=== PATIENT | female | born 1980 | race Caucasian/White ===

== ENCOUNTER 2016-08-22 00:57 | Emergency (ER) | payer BC, MEDICAID, OTHER ==
[2016-08-22] MEDS ORDERED: Midazolam 1 MG/ML 2 ML SDV ONE (01:14)
[2016-08-22] MEDS ORDERED: Sodium Chloride 0.9% 1,000 ML IV SCH (01:45)
[2016-08-22] MEDS ORDERED: Ketorolac 30 MG/ML SDV IVPUSH ONE (01:59)
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
[2016-08-22] MEDS ORDERED: Acetaminophen/HYDROcodone 325-5 MG Tab PO ONE (03:25)
[2016-08-22 03:43] VITALS: BP 126/90
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
== END 2016-08-22 03:35 | disposition home or self-care (01) ==
LOC: FB.ED 00:57
DX: S22.31XA Fracture of one rib, right side, initial encounter for closed fracture (principal); S32.059A Unspecified fracture of fifth lumbar vertebra, initial encounter for closed fracture; S80.811A Abrasion, right lower leg, initial encounter; W22.8XXA Striking against or struck by other objects, initial encounter; Y93.89 Activity, other specified
CPT/HCPCS: 36415; 71010; 71250; 72128; 73590; 74176; 80048; 80076; 80305; 81001; 82150; 84702; 85025; 85610; 96365; 96375; 99285; A9270; G0480; J1885; J7040

== ENCOUNTER 2017-11-05 11:31 | Emergency (ER) | payer MEDICAID ==
[2017-11-05] MEDS ORDERED: Ketorolac 60 MG/2 ML SDV IM ONE (11:41)
--- NOTE | 2017-11-05 11:44 | EDM.PDOC ---
ED HPI GENERAL MEDICAL PROBLEM - General Stated Complaint: PAIN Time Seen by Provider: 11/05/17 11:31 Source of Information: Reports: Patient History Limitations: Reports: No Limitations - History of Present Illness INITIAL COMMENTS - FREE TEXT/NARRATIVE: 37 y.o.w.f came to the ed after she was released from skilled nursing. Pt was in the skilled nursing for 6 month for cocaine and and amphetamine use. She was not on drugs while in skilled nursing but started "shooting Amphetamines" the day after she was released from skilled nursing. Pt attempted to inject amphetamine in her left forearm and left elbow. Pt came to the ed today because of the concern about her rash at her right elbow and 2 needles broke while she was trying to inject drugs in her left forearm and right elbow. I addition, Pt was on Psych meds while being in skilled nursing. She was not given meds or a medication schedule at the time she was released from skilled nursing yesterday. No SOB, No CP no N/V/D or any other acute medical issues. 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: Other (see below) (amphetamis, iv ) right anticub Pain Score (Numeric/FACES): 3 - Related Data Allergies Allergy/AdvReac Type Severity Reaction Status Date / Time No Known Allergies Allergy Verified 11/05/17 13:13 Home Meds: Home Meds ARIPiprazole [Abilify] 20 mg PO DAILY 11/05/17 [History] Budesonide/Formoterol [Symbicort 160-4.5 MCG] 2 puff INH DAILY PRN 11/05/17 [ History] Cyclobenzaprine [Flexeril] 10 mg PO BID 11/05/17 [History] Escitalopram Oxalate [Lexapro] 20 mg PO DAILY 11/05/17 [History] Ibuprofen 800 mg PO TID PRN 11/05/17 [History] hydrOXYzine pamoate [Hydroxyzine Pamoate] 50 mg PO TID 11/05/17 [History] traZODone HCl [Trazodone HCl] 50 mg PO BEDTIME 11/05/17 [History] Past Medical History - Past Health History Medical/Surgical History: Denies Medical/Surgical History Respiratory History: Reports: Asthma, COPD MANAGER MBA History: Reports: Other (See Below) Other MANAGER MBA History: ovarian cyst Musculoskeletal History: Reports: Back Pain, Chronic, Other (See Below) Other Musculoskeletal History: [place] deformity. degenerative bone Dz. sciatica - Past Surgical History GI Surgical History: Reports: Cholecystectomy Social & Family History - Family History Family Medical History: Noncontributory - Caffeine Use Caffeine Use: Reports: Coffee ED ROS GENERAL - Review of Systems Review Of Systems: See Below Constitutional: Reports: No Symptoms HEENT: Reports: No Symptoms Respiratory: Reports: No Symptoms Cardiovascular: Reports: No Symptoms Endocrine: Reports: No Symptoms GI/Abdominal: Reports: No Symptoms : Reports: No Symptoms Musculoskeletal: Reports: Arm Pain Skin: Reports: Wound (left arm right elbow rash, minor) Neurological: Reports: No Symptoms Psychiatric: Reports: Agitation Hematologic/Lymphatic: Reports: No Symptoms Immunologic: Reports: No Symptoms ED EXAM, NEURO - Physical Exam Exam: See Below Exam Limited By: No Limitations General Appearance: Alert, WD/WN, Mild Distress Eye Exam: Bilateral Eye: Normal Inspection Ears: Normal External Exam Nose: Normal Inspection Throat/Mouth: Normal Inspection, Normal Lips, Normal Gums, Normal Voice, No Airway Compromise Head Exam: Atraumatic, Normocephalic Neck: Normal Inspection, Supple, Non-Tender, Full Range of Motion Respiratory/Chest: No Respiratory Distress, Lungs Clear, Normal Breath Sounds, No Accessory Muscle Use, Chest Non-Tender Cardiovascular: Normal Peripheral Pulses, Regular Rate, Rhythm, No Edema, No Gallop, No Murmur, No Rub GI/Abdominal: Normal Bowel Sounds, Soft, Non-Tender, No Organomegaly, No Distention, No Abnormal Bruit, No Mass, Pelvis Stable (Female) Exam: Deferred Rectal (Female) Exam: Deferred Neurological: Alert, Normal Mood/Affect, Normal Dorsiflexion, CN II-XII Intact, Normal Gait, Oriented x 3 Back Exam: Normal Inspection, Full Range of Motion Extremities: Normal Inspection, Normal Range of Motion, Non-Tender, No Pedal Edema, Normal Capillary Refill Psychiatric: Normal Affect, Anxious Skin Exam: Warm, Dry, Rash (right elbow, minor due to IVD needle insertion), Tattoo(s) Course - Vital Signs Text/Narrative:: 37 y.o.w.f came to the ed after she was released from skilled nursing. Pt was in the skilled nursing for 6 month for cocaine and and amphetamine use. She was not on drugs while in skilled nursing but started "shooting Amphetamines" the day after she was released from skilled nursing. Pt attempted to inject amphetamine in her left forearm and left elbow. Pt came to the ed today because of the concern about her rash at her right elbow and 2 needles broke while she was trying to inject drugs in her left forearm and right elbow. I addition, Pt was on Psych meds while being in skilled nursing. She was not given meds or a medication schedule at the time she was released from skilled nursing yesterday. No SOB, No CP no N/V/D or any other acute medical issues. BP 143/93 RR 22 Pulse 110 Temp 37.2 Pulse ox 100% on RA PE: Obese 37 y.o.w.f with needle stick martin at the left and right forearm Imaging: Left forearm: No FB seen Labs: CBC and BMP were nl (K was 3.3) UDS was pos for Tricyclics and amphetamines Impression: UDS pos for amphetamine and tricyclics, needle martin left and right forearm Tx: Toradol Reexam: improved, pt felt comfortable, was advised to apply Triple Abx to the affected area at he left and right forearm Plan: D/C with instructions Last Recorded V/S: Last Vital Signs Temp 37.5 C 11/05/17 13:20 Pulse 97 11/05/17 13:20 Resp 18 11/05/17 13:20 BP 154/83 H 11/05/17 13:20 Pulse Ox 96 11/05/17 13:20 - Orders/Labs/Meds Orders: Active Orders 24 hr Category Date Time Status DRUG SCREEN, URINE ALERE [URCHEM] Stat Lab 11/05/17 11:44 Ordered HCG QUALITATIVE,URINE [URCHEM] Stat Lab 11/05/17 11:44 Ordered Labs: Laboratory Tests 11/05/17 11/05/17 11/05/17 Range/Units 11:44 11:44 12:07 WBC (4.5-12.0) X10-3/uL RBC (3.23-5.20) x10(6)uL Hgb (11.5-15.5) g/dL Hct (30.0-51.3) % MCV (80-96) fL MCH (27.7-33.6) pg MCHC (32.2-35.4) g/dL RDW (11.5-15.5) % Plt Count (125-369) X10(3)uL MPV (7.4-10.4) fL Neut % (Auto) (46-82) % Lymph % (Auto) (13-37) % [place] % (Auto) (4-12) % Eos % (Auto) (1.0-5.0) % Baso % (Auto) (0-2) % Neut # (Auto) (1.6-8.3) # Lymph # (Auto) (0.6-5.0) # [place] # (Auto) (0.0-1.3) # Eos # (Auto) (0.0-0.8) # Baso # (Auto) (0.0-0.2) # Sodium (135-145) mmol/L Potassium (3.5-5.3) mmol/L Chloride (100-110) mmol/L Carbon Dioxide (21-32) mmol/L BUN (7-18) mg/dL Creatinine (0.55-1.02) mg/dL Est Cr Clr Drug Dosing Estimated GFR (MDRD) (>60) BUN/Creatinine Ratio (9-20) Glucose (80-116) mg/dL Calcium (8.6-10.2) mg/dL TSH, Ultra Sensitive 1.08 (0.36-3.74) IU/mL Urine HCG, Qual Negative (NEGATIVE) Urine Opiates Screen Negative (NEGATIVE) Ur Oxycodone Screen Negative (NEGATIVE) Ur Propoxyphene Screen Negative (NEGATIVE) Ur Barbituates Screen Negative (NEGATIVE) Ur Tricyclics Screen Positive H (NEGATIVE) Ur Phencyclidine Scrn Negative (NEGATIVE) Ur Amphetamine Screen Positive H (NEGATIVE) Urine MDMA Screen Positive H (NEGATIVE) U Benzodiazepines Scrn Negative (NEGATIVE) U Cocaine Metab Screen Negative (NEGATIVE) U Marijuana (THC) Screen Negative (NEGATIVE) Ethyl Alcohol < 0.03 (<0.03) % 11/05/17 11/05/17 Range/Units 12:07 12:07 WBC 10.9 (4.5-12.0) X10-3/uL RBC 3.84 (3.23-5.20) x10(6)uL Hgb 11.6 (11.5-15.5) g/dL Hct 33.9 (30.0-51.3) % MCV 88.4 (80-96) fL MCH 30.2 (27.7-33.6) pg MCHC 34.1 (32.2-35.4) g/dL RDW 12.1 (11.5-15.5) % Plt Count 283 (125-369) X10(3)uL MPV 8.5 (7.4-10.4) fL Neut % (Auto) 81.1 (46-82) % Lymph % (Auto) 11.9 L (13-37) % [place] % (Auto) 6.0 (4-12) % Eos % (Auto) 1 (1.0-5.0) % Baso % (Auto) 1 (0-2) % Neut # (Auto) 8.7 H (1.6-8.3) # Lymph # (Auto) 1.3 (0.6-5.0) # [place] # (Auto) 0.7 (0.0-1.3) # Eos # (Auto) 0.1 (0.0-0.8) # Baso # (Auto) 0.1 (0.0-0.2) # Sodium 135 (135-145) mmol/L Potassium 3.3 L (3.5-5.3) mmol/L Chloride 102 (100-110) mmol/L Carbon Dioxide 24 (21-32) mmol/L BUN 16 (7-18) mg/dL Creatinine 0.9 (0.55-1.02) mg/dL Est Cr Clr Drug Dosing TNP Estimated GFR (MDRD) > 60 (>60) BUN/Creatinine Ratio 17.8 (9-20) Glucose 96 (80-116) mg/dL Calcium 8.4 L (8.6-10.2) mg/dL TSH, Ultra Sensitive (0.36-3.74) IU/mL Urine HCG, Qual (NEGATIVE) Urine Opiates Screen (NEGATIVE) Ur Oxycodone Screen (NEGATIVE) Ur Propoxyphene Screen (NEGATIVE) Ur Barbituates Screen (NEGATIVE) Ur Tricyclics Screen (NEGATIVE) Ur Phencyclidine Scrn (NEGATIVE) Ur Amphetamine Screen (NEGATIVE) Urine MDMA Screen (NEGATIVE) U Benzodiazepines Scrn (NEGATIVE) U Cocaine Metab Screen (NEGATIVE) U Marijuana (THC) Screen (NEGATIVE) Ethyl Alcohol (<0.03) % Meds: Medications Discontinued Medications Generic Name Dose Route Start Last Admin Trade Name Freq PRN Reason Stop Dose Admin Ketorolac Tromethamine 60 mg 11/05/17 11:41 11/05/17 12:17 Toradol IM 11/05/17 11:42 60 mg ONETIME ONE Administration Departure - Departure Time of Disposition: 13:49 Disposition: Home, Self-Care 01 Condition: Good Clinical Impression: Drug overdose, intentional Qualifiers: Encounter type: subsequent encounter Qualified Code(s): T50.902D - Poisoning by unspecified drugs, medicaments and biological substances, intentional self- harm, subsequent encounter - Discharge Information Referrals: Amie Gonzalez NP [Primary Care Provider] - Forms: ED Department Discharge Additional Instructions: Please follow up at 2.30 pm today at [facility] for medication refills. - My Orders Last 24 Hours: My Active Orders 11/05/17 11:44 DRUG SCREEN, URINE ALERE [URCHEM] Stat HCG QUALITATIVE,URINE [URCHEM] Stat - Assessment/Plan Last 24 Hours: My Active Orders 11/05/17 11:44 DRUG SCREEN, URINE ALERE [URCHEM] Stat HCG QUALITATIVE,URINE [URCHEM] Stat
--- NOTE | 2017-11-05 12:58 | CR ---
INDICATION: Possible foreign body left forearm, pain. LEFT FOREARM: Frontal and lateral views of the left forearm revealed no bone or joint abnormality. No radiopaque foreign bodies could be identified. [facility]
[2017-11-05 15:09] VITALS: BP 154/83
== END 2017-11-05 13:55 | disposition home or self-care (01) ==
LOC: FB.ED 11:31
DX: T43.622D Poisoning by amphetamines, intentional self-harm, subsequent encounter (principal)
CPT/HCPCS: 36415; 73090; 80048; 80305; 81025; 84443; 85025; 96372; 99283; G0480; J1885

== ENCOUNTER 2022-05-07 17:05 | Emergency (ER) | payer MEDICAID, OTHER ==
[2022-05-07 18:17] LABS: ESTIMATED GFR 96 mL/min (>60)
[2022-05-07 18:50] VITALS: BP 158/94; PULSE 83
== END 2022-05-07 18:55 | disposition home or self-care (01) ==
LOC: FB.ED 17:05
DX: L01.00 Impetigo, unspecified (principal); A49.01 Methicillin susceptible Staphylococcus aureus infection, unspecified site; J44.9 Chronic obstructive pulmonary disease, unspecified; Z79.899 Other long term (current) drug therapy
CPT/HCPCS: 36415; 80053; 81001; 81025; 83605; 85025; 86140; 87040; 99283

== ENCOUNTER 2023-03-14 00:20 | Emergency (ER) | payer MEDICAID ==
[2023-03-14] MEDS ORDERED: traMADol 50 MG Tab PO ONE (00:21)
[2023-03-14 01:09] VITALS: BP 123/70; PULSE 98
== END 2023-03-14 02:00 | disposition home or self-care (01) ==
LOC: FB.ED 00:20
DX: K08.89 Other specified disorders of teeth and supporting structures (principal); K04.7 Periapical abscess without sinus; J44.9 Chronic obstructive pulmonary disease, unspecified; F17.210 Nicotine dependence, cigarettes, uncomplicated; Z79.899 Other long term (current) drug therapy
CPT/HCPCS: 99282; 99283; A9270-GY

== ENCOUNTER 2023-03-22 23:46 | Emergency (ER) | payer MEDICAID ==
[2023-03-22] MEDS ORDERED: Acetaminophen/HYDROcodone 325-5 MG Tab PO ONE (23:47)
[2023-03-23] MEDS ORDERED: Clindamycin HCl 150 MG Cap PO ONE (00:14)
[2023-03-23 00:21] VITALS: BP 160/104; PULSE 82
== END 2023-03-23 00:44 | disposition home or self-care (01) ==
LOC: FB.ED 23:46
DX: K04.7 Periapical abscess without sinus (principal); J44.9 Chronic obstructive pulmonary disease, unspecified; Z90.49 Acquired absence of other specified parts of digestive tract; Z79.899 Other long term (current) drug therapy
CPT/HCPCS: 99282; 99283; A9270-GY

== ENCOUNTER 2024-07-25 15:17 | Emergency (ER) | payer MEDICAID ==
[2024-07-25 15:33] VITALS: BP 126/74; PULSE 83
== END 2024-07-25 16:21 | disposition home or self-care (01) ==
LOC: FB.ED 15:17
DX: M54.50 Low back pain, unspecified (principal); G89.29 Other chronic pain; J44.89 Other specified chronic obstructive pulmonary disease; Z79.899 Other long term (current) drug therapy; Z90.49 Acquired absence of other specified parts of digestive tract; W19.XXXA Unspecified fall, initial encounter
CPT/HCPCS: 99282